=== PATIENT | female | born 1985 | race Caucasian/White ===

== ENCOUNTER 2023-07-27 08:40 | Emergency (ER) | payer OTHER, SELFPAY ==
[2023-07-27 08:43] VITALS: BP 118/72
[2023-07-27 09:15] VITALS: BMI 20.2
--- NOTE | 2023-07-27 09:34 | ED.GENMED ---
History of Present Illness
General
Chief Complaint: Abdominal Pain
Source: patient
Time Seen by Provider: 07/27/23 09:14
Travel History
Have you had any contact with someone who has COVID-19?: No
Do you have any symptoms of coronavirus? Fever > 100 degrees, chills, cough, shortness of breath, sore throat, loss of taste or smell, muscle aches, or headache?: No
History of Present Illness
History of Present Illness:
This patient is a 38-year-old female who states that she developed a 'twinge' of right lower quadrant pain about a month ago. At that time she was . She shortly after suffered a miscarriage on June 20, and the pain went away. Then,
sometime last week, she developed the same discomfort in the right lower quadrant that she thought might be ovulation. She got an ultrasound and she was told it was normal, and consistent with ovulation. The pain went away shortly after. She was
feeling well until yesterday afternoon when she started to feel a gradual onset of lower abdominal discomfort that is getting progressively worse and is localized to the right lower quadrant. She thought it might be gas but because it has continued
she is concerned. She notes the pain is worse with certain movements and when she is supine. She took Gas-X and Pepto without relief of symptoms. This morning, she went to an urgent care was referred here. She notes chills but denies fever,
nausea, vomiting. She has mild anorexia. She denies chest pain, shortness of breath, upper abdominal pain, urinary symptoms. She did have some lower back discomfort earlier which is now gone. She describes abdominal pain as a 'dull ache'.
Patient states she thought she might be menstruating a few days ago, but it went away shortly.
Past History
Past History
ED Past Medical History: Psychiatric
ED Past Surgical History: Gynecological and Other
Social History
Tobacco: Non-smoker
Alcohol: Occasional
Drug: None
Living: with family
Phy Exam
Physical Exam
Physical Exam:
GENERAL: Alert , in no apparent distress
EYE: pupils equal and reactive
NECK: Supple, no significant adenopathy.
ENT: o/p clr, mmm.
CARDIAC: Regular rate and rhythm .
LUNGS: Clear breath sounds bilaterally, no acute respiratory distress, no wheezes/rales/rhonchi
ABDOMEN: Soft, mild right mid and lower quadrant tenderness, no r/g, no cvat
NEUROLOGICAL: Alert and oriented, no focal neuro deficits
SKIN: Warm and dry, skin intact.
MUSCULOSKELETAL: No edema, well perfused.
PSYCH: Normal and appropriate interaction.
Course
Orders/Labs/Results
Orders:
Orders
07/27/23 09:20
Urinalysis Reflex To Culture Urgent
Date Specimen was Collected: 07/27/23
Time Specimen was Collected: 09:17
07/27/23 09:33
CT Abd/pel W Iv And Oral Contr Urgent
Comment:
Reason For Exam: RLQ PAIN
Iohexol [Omnipaque] See Protocol PO NOW STA
Ketorolac [Toradol] 15 mg IV NOW STA
Test Result ONCE
07/27/23 09:47
Complete Blood Count/With Diff Urgent
Comprehensive Metabolic Panel Urgent
HCG, Serum Qualitative Screen Urgent
Lipase Urgent
Abnormal Lab Results
07/27/23
09:47
Absolute Neuts (auto) 7.3 H 10^3/uL
(1.4-6.5)
07/27/23 09:47
07/27/23 09:47
Vital Signs
Initial and Last Documented VS:
Initial Vital Signs
Temp Pulse Resp BP Pulse Ox
97.9 F 63 18 118/72 97
07/27/23 08:43 07/27/23 08:43 07/27/23 08:43 07/27/23 08:43 07/27/23 08:43
Last Documented Vital Signs
Temp Pulse Resp BP Pulse Ox
97.9 F 59 20 103/63 98
07/27/23 08:43 07/27/23 12:30 07/27/23 12:30 07/27/23 12:30 07/27/23 12:30
*Critical Care Note
Total Time (30-74mins, 75-104mins- exclusive of procedures): Not Applicable
Update Note
Update Note:
Patient presents to the Emergency Department with abdominal pain
Number and Complexity of Problems Addressed at the Encounter
� Chronic conditions affecting care:
� Acute Exacerbation and/or Progression of Chronic Illness:
� Differential Diagnosis includes: But not limited to appendicitis, kidney stone, ovarian cyst, etc. etc.
Amount and/or Complexity of Data to be Reviewed and Analyzed
� I performed an independent evaluation of and my interpretation is:
EKG:
CT:Mildly prominent lymph nodes in the small bowel mesentery consistent with mesenteric adenitis. No bowel obstruction.
2. Solid organs unremarkable
3. Appendix borderline enlarged at 8 mm in greatest dimension. Minimal adjacent inflammatory stranding. Appendicitis to be excluded.
Xrays:
Laboratory Studies:NL
Other:
� Review of other/old records reveals:
� Clinical information was obtained by an independent historian:
� Prescriptions/Medications Considered but not given:
� Further testing considered but not performed:
Risk of Complications and/or Morbidity or Mortality of Patient Management
� Social determinants of health affecting care:
� Discussion with other providers (PCP, Hospitalists, Consultants, etc):
� Escalation of care including admission/observation vs risk of discharge considered: 2:58 PM Long Long discussion with patient, I printed out CAT scan results for her, labs reviewed with her, reexamination. Patient is eager to
be discharged states she feels better, denies fever, sweats, nausea, vomiting, increasing pain. On exam, patient has mild tenderness to palpation, no rebound or guarding. She is able to jump up and down in the room without discomfort. She is very
clear that diagnosis of appendicitis has not yet been able to be fully excluded although I think it is far less likely than mesenteric adenitis. Given her lack of fever, leukocytosis, vomiting, worsening discomfort, overall unimpressive abdominal
examination, etc. She elects for observation at home with clear understanding of reasons to return the emergency department.
ED Attending Note
-
Portions of this chart may have been created with voice recognition software.� Occasional wrong word or��sound alike� substitutions may have occurred due to the inherent limitations of voice recognition software.
Discharge Plan
Departure
Patient Disposition: Home (Routine Discharge)
Date of Disposition: 07/27/23
Time of Disposition: 14:59
Patient with high blood pressure during this ER visit?: No
Discharge Problem:
Mesenteric adenitis
Instructions: Mesenteric Lymphadenitis
Referrals:
Jonelle Del Rio CRNP [Family Provider] - Tomorrow
Activity Restrictions/Additional Instructions:
IT IS STILL POSSIBLE THAT YOU HAVE APPENDICITIS ALTHOUGH WE THINK THIS IS UNLIKELY. PLEASE PAY CLOSE ATTENTION TO YOUR SYMPTOMS WHEN YOU GO HOME. IF YOU DEVELOP PERSISTENT NEW OR WORSENING PAIN, VOMITING, FEVER, LOSS OF APPETITE, DO NOT GET
BETTER, GET WORSE OR OTHER WORRISOME SIGNS, PLEASE RETURN TO THE ER IMMEDIATELY
Interventions
Interventions:
*Risk Screen - Suicide Last Done: 07/27/23 09:13
*General Assessment Last Done: 07/27/23 09:13
*Neglect/Abuse Screening Last Done: 07/27/23 09:13
*ED COVID-19 Vaccine History Last Done: 07/27/23 08:43
TD-Dodawi-Vxalkewzmz Assessment Last Done: 07/27/23 09:14
Discharge Date and Time
Print Language: [id number]
[2023-07-27] MEDS: TORADOL 15 MG IV (09:42)
[2023-07-27] MEDS: OMNIPAQUE 50 ML PO (09:42)
[2023-07-27 09:48] LABS: Urine Albumin Negative (Neg - Trace); Urine Bilirubin Negative (Negative); Urine Character Clear (Clear); Urine Color Yellow; Urine Glucose Negative (Negative); Urine Ketone Negative (Negative); Urine Leukocyte Negative (Negative); Urine Nitrite Negative (Negative); Urine Occult Blood Negative (Negative); Urine Urobilinogen Negative (Neg - 1+)
[2023-07-27 10:03] LABS: % Basophils 0.3 % (0-2); % Eosinophils 0.1 % (0-6); % Immature Granulocytes 0.3 % (0-0.5); % Lymphocytes 20.6 % (20.5-51.1); % Monocytes 5.8 % (1.7-9.3); % Neutrophils 72.9 % (42.2-75.2); Absolute Lymphocytes 2.1 10^3/uL (1.2-3.4); Absolute Monocytes 0.6 10^3/uL (0.1-0.6); Absolute Neutrophils 7.3 10^3/uL (1.4-6.5); Hematocrit 38.1 % (37.0-47.0); Hemoglobin 12.7 g/dL (12.0-16.0); Mean Corp Hgb Conc. 33.3 g/dL (33.0-37.0); Mean Corpuscular Hgb 29.2 pg (27.0-31.0); Mean Corpuscular Volume 87.6 fL (81.0-99.0); Mean Platelet Volume 8.5 fL (7.4-10.4); Nucleated Red Blood Cells % 0 %; Platelet Count 212 10^3/uL (130-400); Red Blood Cell Count 4.35 10^6/uL (4.20-5.40); Red Cell Dist. Width 12.4 % (11.5-14.5)
[2023-07-27 10:16] LABS: HCG, Serum Qualitative Screen Negative
[2023-07-27 10:20] LABS: ALT (SGPT) 23 U/L (0-35); AST (SGOT) 22 U/L (14-36); Alkaline Phosphatase 57 U/L (38-126); Blood Urea Nitrogen 9 mg/dl (7-17); Calcium 9.3 mg/dl (8.4-10.2); Carbon Dioxide 28 mmol/L (22-30); Chloride 106 mmol/L (98-107); Estimated Creatinine Clearance 97 ml/min; Glucose 94 mg/dl (70-99); Lipase 65 U/L (23-300); Potassium 4.1 mmol/L (3.5-5.1); Sodium 135 mmol/L (135-145); Total Bilirubin 0.8 mg/dl (0.2-1.3); Total Protein 6.7 g/dl (6.3-8.2); eGFR > 60.00
[2023-07-27 12:30] VITALS: BP 103/63
[2023-07-27 15:10] VITALS: BP 109/71
== END 2023-07-27 15:00 | disposition home or self-care (01) ==
LOC: EMR 08:40
PROVIDERS: EMERGENCY PHYSICIAN Emergency Medicine; FAMILY PHYSICIAN Nurse Practitioner Family
DX: I88.0 Nonspecific mesenteric lymphadenitis (principal)
CPT/HCPCS: 99285; 96374; 74177; 80053; 81003; 83690; 84703; 85025; Q9967

== ENCOUNTER → 2024-02-27 10:19 | Outpatient (REF) | payer OTHER, SELFPAY | LOC: UCDH 10:19 | PROVIDERS: ATTENDING PHYSICIAN Emergency Medicine | DX: S93.601A Unspecified sprain of right foot, initial encounter (principal) | CPT/HCPCS: 73630 ==